=== PATIENT | male | born 1955 | race Caucasian/White ===

== ENCOUNTER 2023-10-22 03:05 | Emergency (ER) | payer BC, SELFPAY ==
[2023-10-22] VITALS (13 sets, daily range): BP systolic 107–126; BP diastolic 70–83; PULSE 92–103; RESP 16–18; TEMP 36.6; O2SAT 98–100; BMI 25.8
--- NOTE | 2023-10-22 03:14 | ED_ITS ---
HPI - Chest Pain General Time Seen by Provider: 03:14 Date Seen: 10/22/23 Chief Complaint: Chest Pain Stated Complaint: Heart issues Time Seen by Provider: 10/22/23 03:12 Source: patient and RN notes reviewed Mode of arrival: ambulatory Limitations: no limitations History of Present Illness HPI narrative: Diomedes is a 68yo male ambulatory into the ED with burning chest pain. He has a history of burning chest pain that was thought to be his pacemaker/defibrillator and one lead or sensor was turned off last fall. He started having the burning chest discomfort which felt a bit different than before in the last couple of weeks, certainly exertional. Doesn't feel any pleuritic pain, no shortness of breath. Has had mild cough from which he believes he caught a cold from his grandchild. No fevers. Did not try his nitro at home due to the fact it gives him a headache. He states that he has been at [facility] recently. He did press his button from home tonight for his device interrogation. Patient did not take any aspirin at home, has not used aspirin for quite some time given his use of Entresto. He states he was told he can no longer use aspirin. He has had 2 prior coronary artery bypass grafting surgeries, last 1 maybe about 15 years ago per his report. This chest pain awoke him tonight, around 130. He does admit that over the last couple weeks he has been having escalating chest burning/discomfort, precipitated by exertion. He does not have any history of thromboembolic disease per report. MD complaint: chest pain and chest heaviness Pertinent past history: coronary artery disease, prior CT and CABG Related Data Home Medications Medication Instructions Recorded Confirmed acetaminophen 500 mg capsule 500 mg PO Q6H PRN 03/05/23 10/22/23 lisinopril 20 1 tab PO BID 03/05/23 10/22/23 mg-hydrochlorothiazide 25 mg tablet metoprolol tartrate 25 mg tablet 12.5 mg PO BID 03/05/23 10/22/23 nitroglycerin 0.4 mg sublingual 0.4 mg sublingual Q5M PRN 03/05/23 03/05/23 tablet sacubitril 97 mg-valsartan 103 mg 1 tab PO BID 03/05/23 10/22/23 tablet (Entresto) simvastatin 20 mg tablet 20 mg PO QHS 03/05/23 10/22/23 dapagliflozin propanediol 10 mg 10 mg PO DAILY 10/22/23 10/22/23 tablet (Farxiga) Allergies Allergy/AdvReac Type Severity Reaction Status Date / Time No Known Drug Allergies Allergy Verified 03/05/23 11:14 Review of Systems Status of ROS Reports: 6 or more systems reviewed and unremarkable except as noted in History and below PFSH PFS Medical History Pacemaker ?Z95.0 - Presence of cardiac pacemaker (ICD-10) Hyponatremia ?E87.1 - Hypo-osmolality and hyponatremia (ICD-10) Surgical History History of total left knee replacement ?Z96.652 - Presence of left artificial knee joint (ICD-10) History of right hip replacement ?Z96.641 - Presence of right artificial hip joint (ICD-10) Social History Smoking Status: Never smoker Non-prescribed substance use: denies use Exam Const Vital Signs, click to edit/add: Vital Signs - 24 hr 10/22/23 03:11 10/22/23 03:16 10/22/23 03:21 Temperature 97.9 F Pulse Rate 103 H Pulse Rate [Pulse Oximeter] 101 H Respiratory Rate 18 16 Blood Pressure 126/83 Blood Pressure [Right Upper Arm] 120/78 Pulse Oximetry 98 99 98 Oxygen Delivery Method Room Air 10/22/23 03:25 10/22/23 03:32 10/22/23 03:42 Temperature Pulse Rate 92 102 H 100 Pulse Rate [Pulse Oximeter] Respiratory Rate 16 16 16 Blood Pressure 113/75 110/75 109/74 Blood Pressure [Right Upper Arm] Pulse Oximetry 99 98 100 Oxygen Delivery Method 10/22/23 03:47 10/22/23 03:53 10/22/23 03:56 Temperature Pulse Rate 103 H 102 H 102 H Pulse Rate [Pulse Oximeter] Respiratory Rate 18 Blood Pressure 115/70 107/72 Blood Pressure [Right Upper Arm] Pulse Oximetry 98 99 100 Oxygen Delivery Method 10/22/23 03:57 10/22/23 04:00 10/22/23 04:02 Temperature Pulse Rate 103 H 103 H Pulse Rate [Pulse Oximeter] Respiratory Rate Blood Pressure 112/74 Blood Pressure [Right Upper Arm] Pulse Oximetry 99 99 Oxygen Delivery Method 10/22/23 04:07 Temperature Pulse Rate Pulse Rate [Pulse Oximeter] Respiratory Rate Blood Pressure 113/71 Blood Pressure [Right Upper Arm] Pulse Oximetry Oxygen Delivery Method Diomedes is a 68-year-old male ambulatory into the ED of his own accord. He is alert come interactive, no apparent distress, able speak in complete sentences. Sclera clear, symmetrical facial function. Neck is supple, do not appreciate jugular venous distension, no cervical adenopathy or thyromegaly masses or nodules. He is able to sit up, lungs are clear, good air entry, no wheezing or crackles. CV regular but slightly fast, he is in the low 100s for a pulse on the monitor, there is a wide complex and looks to be paced. Do not hear definite murmur at this time, he has well-healed sternotomy scar on his chest, pacemaker left upper chest wall. Abdomen is soft, no rebound or guarding, no organomegaly, no masses. He has no lower extremity edema. Documenting provider has reviewed patient's vital signs: yes Course Course ED Course: Patient will be on cardiac monitoring, pulse oximetry. Certainly his history is concerning for acute coronary issues. He does not clinically seem to be in congestive heart failure. We will have get basic labs including D-dimer and troponin obviously. Will get a portable chest x-ray. Will initiate oral nitroglycerin, will have some low-level IV fluids running to counteract blood pressure changes. Will give him a 1000 mg acetaminophen to counteract headache from the nitroglycerin. Reevaluation(s) Time of Reevaluation #1: 03:36 Reevaluation #1: Patient's point of care troponin is elevated at 0.23. Have reviewed this with him. We did review that there are occasionally sometimes pulse positives, we are confirming with the lab troponin. He did have some improvement in his chest discomfort with 1 sublingual nitroglycerin. As I am talking to him, he feels this chest pain is escalating again but admits that he is feeling nervous now. I think we will go ahead and just start a nitroglycerin drip. We have paged [facility]. Consultations Consultation #1: Spoke with Dr. Corona interventional cardiology. He accepts the patient, is going to take him to the laboratory tech. He is level 2 emergent. Confirmed that we will give aspirin, ticagrelor and heparin ACS protocol. Patient and his are informed that he will be going to the laboratory tech, he will be going via ambulance. He states that his pain is improved with the nitroglycerin drip. Time: 03:49 Vital Signs Vital signs: Initial Vital Signs Temperature 97.9 F 10/22/23 03:11 Temperature Source Temporal Artery Scan 10/22/23 03:11 Pulse Rate 101 H 10/22/23 03:11 Respiratory Rate 18 10/22/23 03:11 Blood Pressure 120/78 10/22/23 03:11 Blood Pressure Mean 92 10/22/23 03:11 Blood Pressure Position Sitting 10/22/23 03:11 Pulse Oximetry 98 10/22/23 03:11 Oxygen Delivery Method Room Air 10/22/23 03:11 Vital Signs Temperature 97.9 F 10/22/23 03:11 Pulse Rate 101 H 10/22/23 03:11 Respiratory Rate 18 10/22/23 03:11 Blood Pressure 120/78 10/22/23 03:11 Pulse Oximetry 98 10/22/23 03:11 Oxygen Delivery Method Room Air 10/22/23 03:11 Temperature 97.9 F 10/22/23 03:11 Pulse Rate 103 H 10/22/23 04:00 Respiratory Rate 18 10/22/23 03:47 Blood Pressure 113/71 10/22/23 04:07 Pulse Oximetry 99 10/22/23 04:00 Oxygen Delivery Method Room Air 10/22/23 03:11 Medications Administered Medications: Generic Name Dose Route Start Last Admin Trade Name Freq PRN Reason Stop Dose Admin Acetaminophen 1,000 mg 10/22/23 03:21 10/22/23 03:48 Acetaminophen 500 Mg Tablet PO 10/22/23 03:22 1,000 mg ONCE ONE Administration Aspirin 324 mg 10/22/23 03:54 10/22/23 03:58 Aspirin 81 Mg Tab.Chew PO 10/22/23 03:55 324 mg ONCE ONE Administration Heparin Sodium (Porcine) 4,000 unit 10/22/23 03:54 10/22/23 04:03 Heparin 5,000 Unit/0.5 Ml Inj IVP 10/22/23 03:55 4,000 unit ONCE ONE Administration Sodium Chloride 500 mls @ 500 mls/hr 10/22/23 03:21 10/22/23 04:27 0.9 % Sodium Chloride 500 Ml IV 10/22/23 04:20 Infused .Q1H ONE Infusion Nitroglycerin/Dextrose 25,000 mcg in 250 mls @ 3 mls/hr 10/22/23 03:37 10/22/23 03:43 Nitroglycerin/Dextrose IVPB 5 mcg/min .TITRATE PRN 3 mls/hr Administration 5 MCG/MIN Heparin Sodium/Dextrose 25,000 unit in 500 mls @ 0 mls/hr 10/22/23 04:00 10/22/23 04:10 Heparin IV 900 unit/hr .Q0M QUENTIN 18 mls/hr Administration Protocol Per Protocol Nitroglycerin 0.4 mg 10/22/23 03:21 10/22/23 03:23 Nitroglycerin 0.4 Mg Tab.Subl SUBLINGUAL 0.4 mg Q5M PRN Administration Ticagrelor 180 mg 10/22/23 03:54 10/22/23 04:03 Ticagrelor 90 Mg Tablet PO 10/22/23 03:55 180 mg ONCE ONE Administration MDM - Chest Pain Medical Records Data Attestation: I reviewed the patient's medical records. Medical records narrative: He was hospitalized July 30 through July 31 where they turned off his sensor, reported to not have any more burning chest symptoms with ambulation. He also has a history of coronary artery disease with a CABG in 1996 and 2002. Has nonischemic cardiomyopathy, HFrEF diagnosed in November of 2020. History of persistent atrial flutter, severe MR, moderate , aortic valve fibroelastoma. Lab Data Attestation: I reviewed the patient's lab results. Labs: Lab Results 10/22/23 10/22/23 10/22/23 Range/Units 03:10 03:15 03:25 WBC 9.32 (4.50-11.00) K/uL RBC 5.15 (4.30-5.90) m/uL Hgb 16.0 (13.5-17.5) gm/dL Hct 48.4 (37.0-53.0) % MCV 94 (80-100) fL MCH 31 (26-34) pg MCHC 33 (32-36) gm/dL RDW Coeff of Angélica 13.0 (11.5-15.5) % Plt Count 226 (140-440) K/uL Neut % (Auto) 56.9 (42.0-72.0) % Lymph % (Auto) 31.8 (20-44) % Hudspeth % (Auto) 6.9 (0.0-11.0) % Eos % (Auto) 2.9 (0.0-7.0) % Baso % (Auto) 0.5 (0.0-3.0) % Neut # (Auto) 5.31 (1.7-7.0) K/uL Lymph # (Auto) 2.96 H (0.90-2.90) K/uL Hudspeth # (Auto) 0.60 (0.00-0.90) K/UL Eos # (Auto) 0.27 (0.00-0.50) K/uL Baso # (Auto) 0.05 (0.00-0.30) K/uL Abs Immat Gran (auto) 0.09 (0.00-0.30) K/uL Imm/Tot Granulo (auto) 1.0 % D-Dimer Quant (PE/DVT) 0.31 (0.00-0.50) ug/ml Sodium 139 (135-149) mmol/L Potassium 3.6 (3.6-5.1) mmol/L Chloride 102 (96-114) mmol/L Carbon Dioxide 22 (20-32) mmol/L Anion Gap 15 (7-15) mEq/L BUN 22 (7-30) mg/dL Creatinine 0.9 (0.5-1.5) mg/dL Estimated Creat Clear 67.02 Estimated GFR 94 ml/min Glucose 119 H (60-115) mg/dL Lactate 1.6 (0.5-1.9) mmol/L Calcium 9.5 (8.4-10.6) mg/dL Total Bilirubin 1.6 H (0.1-1.5) mg/dL AST 37 H (12-35) U/L ALT 35 (4-50) U/L Alkaline Phosphatase 68 (40-150) U/L Total Creatine Kinase 78 (54-186) U/L Troponin I 0.33 H* (0.01-0.04) ng/mL C-Reactive Protein 0.7 (0.5-1.0) mg/dL NT-Pro-B Natriuret Pep 2350 pg/mL Total Protein 8.0 (6.0-8.3) g/dL Albumin 5.1 H (3.3-5.0) g/dL Lipase 84 (23-300) U/L SARS-CoV-2 (PCR) Negative SARS-CoV-2 (Negative) Influenza Type A (PCR) Negative PCR FLU A (Negative) Influenza Type B (PCR) Negative PCR FLU B (Negative) RSV (PCR) Negative PCR RSV (Negative) POC Troponin I 0.23 H (0.01-0.04) ng/ml Imaging Data Chest x-ray: Attestation: I have reviewed the pertinent imaging results. Radiologist's impression: Patient: DIOMEDES PAGAN Facility:?[facility] [place] Patient ID:?[id number] Site Patient ID:?[id number]. Site :?[id number] Study:?XRay Chest 1v portable-10/22/2023 3:43:41 AM Ordering Physician:Reji Victoria Final Report: INDICATION: Chest pain. TECHNIQUE: Chest 1 view. COMPARISON: None. FINDINGS: Cardiovascular and mediastinum: Heart size and vasculature are normal in caliber and appearance. Median sternotomy wires and left-sided biventricular cardiac pacer device. Lungs and pleural spaces: No focal consolidation. No large pleural effusion. No pneumothorax. Bones and soft tissues: No significant findings. IMPRESSION: No acute pulmonary process. Dictated by Curtis Oropeza MD @ 10/22/2023 3:49:28 AM (Electronic Signature) ECG Data Attestation: I personally reviewed and interpreted this ECG as follows: (Ventricular paced at 107 , do see a PVC.) ECG interpretation date: 10/22/23 ECG interpretation time: 03:45 Discharge Plan Discharge Clinical Impression: Acute non-ST elevation myocardial infarction (NSTEMI) Patient Disposition: Xfer [facility] Discharge Location: [facility] Prescriptions: No Action Entresto 97-103 mg tablet 1 tab PO BID acetaminophen 500 mg capsule 500 mg PO Q6H PRN lisinopril-hydrochlorothiazide 20-25 mg tablet 1 tab PO BID metoprolol tartrate 25 mg tablet 12.5 mg PO BID nitroglycerin 0.4 mg tablet, sublingual 0.4 mg sublingual Q5M PRN Rx Instructions: do not exceed 3 doses per episode simvastatin 20 mg tablet 20 mg PO QHS Farxiga 10 mg tablet 10 mg PO DAILY Stand Alone Forms: [facility] Info Instructions
--- NOTE | 2023-10-22 03:21 | CRLHL7_ITS ---
For Patients: As a result of the Century Cures Act, medical imaging exams and procedure reports are released immediately into your electronic medical record. You may view this report before your referring provider. If you have questions, please contact your health care provider. INDICATION: Chest pain. TECHNIQUE: Chest 1 view. COMPARISON: None. FINDINGS: Cardiovascular and mediastinum: Heart size and vasculature are normal in caliber and appearance. Median sternotomy wires and left-sided biventricular cardiac pacer device. Lungs and pleural spaces: No focal consolidation. No large pleural effusion. No pneumothorax. Bones and soft tissues: No significant findings. IMPRESSION: No acute pulmonary process. Dictated by Curtis Oropeza MD @ 10/22/2023 3:49:28 AM (Electronically Signed)
[2023-10-22] MEDS: NITROGLYCERIN 0.4 MG TAB.SUBL SUBLINGUAL (03:23)
[2023-10-22] MEDS: 0.9 % SODIUM CHLORIDE 500 ML 500 ML IV (03:29)
[2023-10-22 03:31] LABS: Basophils Absolute Auto 0.05 K/uL (0.00-0.30); Basophils Percent Auto 0.5 % (0.0-3.0); Eosinophils Absolute Auto 0.27 K/uL (0.00-0.50); Eosinophils Percent Auto 2.9 % (0.0-7.0); Hematocrit 48.4 % (37.0-53.0); Immature Granulocytes Abs Auto 0.09 K/uL (0.00-0.30); Lymphocytes Absolute Auto 2.96 K/uL (0.90-2.90); Lymphocytes Percent Auto 31.8 % (20-44); Mean Corpuscular HGB Conc 33 gm/dL (32-36); Mean Corpuscular Hemoglobin 31 pg (26-34); Mean Corpuscular Volume 94 fL (80-100); Monocytes Percent Auto 6.9 % (0.0-11.0); Neutrophils Absolute Auto 5.31 K/uL (1.7-7.0); Neutrophils Percent Auto 56.9 % (42.0-72.0); Platelet Count* 226 K/uL (140-440); Red Blood Count 5.15 m/uL (4.30-5.90); White Blood Count* 9.32 K/uL (4.50-11.00)
[2023-10-22 03:34] LABS: Lactate* 1.6 mmol/L (0.5-1.9); Slide Review Reflex No
[2023-10-22 03:35] LABS: Albumin* 5.1 g/dL (3.3-5.0); Chloride* 102 mmol/L (96-114); Sodium* 139 mmol/L (135-149)
[2023-10-22 03:36] LABS: Potassium* 3.6 mmol/L (3.6-5.1)
[2023-10-22 03:37] LABS: Creatinine* 0.9 mg/dL (0.5-1.5); Est. Creatinine Clearance* 67.02; Estimated Glomerular Filt Rate 94 ml/min
[2023-10-22 03:38] LABS: Alanine Aminotransferase* 35 U/L (4-50); Alkaline Phosphatase* 68 U/L (40-150); Anion Gap 15 mEq/L (7-15); Aspartate Amino Transferase* 37 U/L (12-35); Bilirubin Total* 1.6 mg/dL (0.1-1.5); Blood Urea Nitrogen* 22 mg/dL (7-30); Carbon Dioxide* 22 mmol/L (20-32); D Dimer Quantitative* 0.31 ug/ml (0.00-0.50)
[2023-10-22 03:39] LABS: Calcium* 9.5 mg/dL (8.4-10.6); Creatine Kinase* 78 U/L (54-186); Glucose* 119 mg/dL (60-115); Lipase* 84 U/L (23-300)
[2023-10-22 03:41] LABS: C Reactive Protein* 0.7 mg/dL (0.5-1.0)
[2023-10-22] MEDS: NITROGLYCERIN/DEXTROSE 25,000 MCG/250 ML BOTTLE 3 MCG IVPB (03:43)
[2023-10-22 03:47] LABS: NT Pro B Type NatriureticPept* 2350 pg/mL
[2023-10-22 03:48] LABS: Troponin, Point-of-Care* 0.23 ng/ml (0.01-0.04)
[2023-10-22] MEDS: ACETAMINOPHEN 500 MG TABLET 1000 MG PO (03:48)
[2023-10-22 03:56] LABS: Troponin I* 0.33 ng/mL (0.01-0.04)
[2023-10-22] MEDS: ASPIRIN 81 MG TAB.CHEW 324 MG PO (03:58)
[2023-10-22] MEDS: TICAGRELOR 90 MG TABLET 180 MG PO (04:03)
[2023-10-22] MEDS: HEPARIN 5,000 UNIT/0.5 ML INJ 4000 UNIT IVP (04:03)
[2023-10-22 04:09] LABS: PCR FLU A Negative PCR FLU A (Negative); PCR FLU B Negative PCR FLU B (Negative); PCR RSV Negative PCR RSV (Negative)
[2023-10-22] MEDS: HEPARIN 25,000 UNIT/500 ML BAG 18 UNIT IV (04:10)
[2023-10-22 04:14] LABS: SARS PCR* Negative SARS-CoV-2 (Negative)
[2023-10-22 04:20] LABS: INR 1.02 (0.91-1.10)
[2023-10-22 04:21] LABS: Partial Thromboplastin Time* 36 Seconds (23-33)
--- NOTE | 2023-10-22 04:29 | ED.NURSE ---
facesheet ekg faxed to [facility] laboratory technologist. [facility] nurse got report and transferred to [facility] via [facility].
== END 2023-10-22 04:38 | disposition short-term general hospital (02) ==
PROVIDERS: Emergency Provider Family Medicine; PCP Family Medicine
DX: I21.4 Non-ST elevation (NSTEMI) myocardial infarction (principal)
CPT/HCPCS: 36415; 71045; 80053; 82550; 83605; 83690; 83880; 84484; 85025; 85379; 85610; 85730; 86140; 87631; 93005; 94761; 96361; 96374; 96375; 99285; 99291; A9270; J1644; J7120

== ENCOUNTER 2023-10-22 04:16 | Outpatient (CLI) | payer BC, SELFPAY | END 2023-10-22 04:17 | disposition home or self-care (01) | LOC: AMB 11:25 | PROVIDERS: PCP Family Medicine; Visit Provider Family Medicine | DX: I21.4 Non-ST elevation (NSTEMI) myocardial infarction (principal) | CPT/HCPCS: A0425; A0434 ==

== ENCOUNTER 2025-07-21 10:30 | Outpatient (RCR) | payer MEDICARE, BC, SELFPAY ==
--- NOTE | 2025-07-09 07:41 | PT.OPE ---
PT [place] Outpatient Eval PT [facility] Outpatient Eval Start: 07/07/25 13:14 Freq: Status: Active Protocol: Document 07/07/25 16:09 ENM (Rec: 07/07/25 16:10 ENM [id number]) E-signed By Ester Mercedes, DPT Physical Therapy Outpatient Evaluation Insurance Information Recert Due Date 10/05/25 Insurance Name Medicare B Medical Diagnosis iliotibial band syndrome, left leg pain in left knee Treating Diagnosis left leg pain, impaired gait, decreased hip ROM, muscle weakness Imaging Report AP Pelvis, AP and Cross-table lateral views of the left Information hip were obtained on 06/16/[address] [facility] [place] [place], were ordered by a different physician, were reviewed by me, were corroborated with the radiology report, and show only minimal left hip osteoarthritis seen with minimal joint space narrowing and small osteophytosis. No acute fractures or avulsions. No signs of AVN. Contralateral right MARITZA implants appear to be in an acceptable position. Referring MD [place] Subjective Subjective Patient presents to PT for complaint of left hip pain. He fell in his shop about a month ago and since then he has had pain along his left hip and ITB. Towards the end of the day the leg is really pounding and throbbing . Due to the pain he is changing the activities he normally does. The leg feels numb. Pain seems to wake him up at night. It does not hurt when he rides the bike. He walks only about 2 blocks before it starts pounding and he has to stop. Prior to this he was walking a lot and does yoga in the winter. PMHx: L TKA in 2019, heart condition, pacemaker, R MARITZA, baseline throbbing at his legs which is being evaluated by [facility] When it started: a month ago Describes it as: end of the day it is sharp, feels like a toothache Timing: worsens with activity and throughout the day Location: left lateral glute and ITB Irritability: mod Severity: mod Pain Comments at its best: none in the morning at its worse: 6-7 easing: sitting aggravating: standing, pulling, lifting, pushing Current Work Status [employer] Occupation [employer] Objective Other/Pertinent Hip AROM: Objective Hip flexion: L 90 R 100 IR:L 17 R 25 ER:L 21 R 28 Lumbar AROM: FF: able to reach mid thin with notable HS tightness Ext: WNL SB: WNL Rot: WNL L knee 0-0-109 R knee 0-0-116 Strength: Hip abductors: L 3+/5 R 4/5 SLS + for glute discomfort and drop of pelvis standing on L compared to R Palpation/joint mobility: + for pain with palpation to glute med, glute min, greater trochanter and ITB Gait/balance: slight decrease in stance time of LLE compared to contralateral side Assessment Assessment/ Patient is a 70 year old male presenting with 1 month Impression history of left glute and ITB pains that started after a fall. Patient fell in their shop onto his left side and has had increasing pain. Symptoms are low in the morning and increase with activity throughout the day leading to throbbing down to the knee by the end of the day. Xray was negative for fracture or significant findings. Upon assessment patients concordant pains brought on with L SLS as well as palpation of left glute med, min, greater trochanter and ITB. They display decreased hip abductor strength on left side compared to contralateral side. Lumbar ROM is WNL and pain free. Hip ROM is limited compared to contralateral side although not painful. Patient signs and symptoms are consistent with their referring diagnosis. Carlos would greatly benefit from skilled PT to address impairments stated above for full return to PLOF after injury. Primary Functional pushing, pulling, standing, walking, lifting Limitations Plan of Care Rehabilitation [facility] Therapy In 7-9 visits: Goals 1. Patient will be IND with HEP and self management of symptoms 2. Patient will be able to perform SLS >15s without glute and leg pain for return to yoga 3. Patient will improve left glute med strength to at least 4/5 for improved ability to perform pushing/ pulling activities 4. Patient will be able to walk 0.5 without increase in pain to demonstrate improvements in walking tolerance 5. Patient will make it through his work day with at worst 3/10 or less left leg pain to progress toward PLOF Coordination/ Referral Source Communication With Treatment Plan/ Dry Needling,Electrical Stimulation,Gait Training,Heat, Direct Interventions Ice/Cold/Vasopneumatic,Joint Mobilization,Manual Therapy,Neuromuscular Re-ed,Self-Care/Home Management, Therapeutic Activities,Therapeutic Exercises Frequency/Duration 1x a week for 7-9 visits Patient Will Be Completion of LTG(s),Independent w/HEP Discharged From Therapy Evaluation Billing Untimed Code 28 Treatment Minutes Complexity Low Certification Information Initial 07/07/25 Certification Date Ending Certification 10/05/25 Date Provider Signature Yes Required Provider Signature POC & Medical Necessity Shows Agreement With Physician NPI Number Write NPI# Here Physician Comment/ : Change Physician Signature Please Sign/Date Here & Date Requested
== END 2025-11-03 10:58 | disposition home or self-care (01) ==
PROVIDERS: PCP Family Medicine; Visit Provider Orthopaedic Surgery Sports Medicine
DX: M76.32 Iliotibial band syndrome, left leg (principal); M25.562 Pain in left knee; Z51.89 Encounter for other specified aftercare
CPT/HCPCS: 97110; 97140; 97161